=== PATIENT | female | born 1950 | race Caucasian/White ===

== ENCOUNTER 2017-08-31 08:52 | Day surgery (SDC) | payer MEDICARE, OTHER ==
[~2017-08-31 08:52] MED LIST: LIDOCAINE HCL 1% MPF 30 SOL ONE; PROPOFOL 500 MG/50 ML EMU IV ONE
[2017-08-31 11:19] VITALS: BP 140/92; PULSE 68; RESP 18; TEMP 97.6; O2SAT 96
== END 2017-08-31 11:53 | disposition home or self-care (01) | DRG 392 ==
LOC: SURG 08:52
PROVIDERS: ATTEND Surgery
DX: R13.10 Dysphagia, unspecified (principal); K57.32 Diverticulitis of large intestine without perforation or abscess without bleeding; Z86.010 Personal history of colon polyps; Z80.0 Family history of malignant neoplasm of digestive organs; D12.2 Benign neoplasm of ascending colon; D12.5 Benign neoplasm of sigmoid colon; D12.3 Benign neoplasm of transverse colon; Z12.11 Encounter for screening for malignant neoplasm of colon
CPT/HCPCS: J2001; J2704